=== PATIENT | male | born 1980 ===

== ENCOUNTER 2022-11-09 23:39 | Outpatient (REF) | payer BC, SELFPAY ==
[2022-11-09 19:06] LABS: HCT 43.2 % (40.0-50.0); MCH 31.6 pg (27.0-33.0); MCHC 34.7 % (32.0-36.0); MCV 91 fL (80-95); MPV 11.5 fL (8.0-11.0); Platelet Count 174 10^3/uL (130-400); RBC 4.75 10^6/uL (4.36-5.78); RDW 12.8 % (11.8-14.1); RDW-SD 42.8 fL; WBC 7.42 10^3/uL (4.4-10.8)
[2022-11-09 19:39] LABS: Hemoglobin A1C 5.3 % (<5.7)
[2022-11-09 19:55] LABS: ALT 132 U/L (16-63); AST 59 U/L (15-37); Albumin 4.1 g/dL (3.4-5.0); Alkaline Phosphatase 94 U/L (46-116); Anion Gap 7.5 mmol/L (3-11); BUN 14 mg/dL (7-18); Bilirubin, Total 0.9 mg/dL (0.2-1.0); CO2 28.5 mmol/L (21.0-32.0); CREATININE 1.3 mg/dL (0.70-1.30); Calcium 9.2 mg/dL (8.5-10.1); Chloride 99 mmol/L (98-107); Glucose 91 mg/dL (74-106); LDL CHOLESTEROL 103 mg/dL (<100); Potassium 3.8 mmol/L (3.5-5.1); Sodium 135 mmol/L (136-145); Total Protein 7.6 g/dL (6.4-8.2)
== END 2022-11-09 23:40 | disposition home or self-care (01) ==
LOC: NCHCN 23:39
PROVIDERS: PCP Physician Assistant Medical; Visit Provider Physician Assistant
DX: I10 Essential (primary) hypertension (principal); F41.8 Other specified anxiety disorders; E66.9 Obesity, unspecified; R79.89 Other specified abnormal findings of blood chemistry
CPT/HCPCS: 80053; 83721; 85027; 83036

== ENCOUNTER 2023-07-13 17:49 | Outpatient (REF) | payer BC, SELFPAY ==
[2023-07-13 19:51] LABS: Abs Immature Grans 0.02 10^3/uL (0.0-0.06); Absolute Basophil Count 0.06 10^3/uL (0.0-0.2); Absolute Eosinophil Count 0.23 10^3/uL (0.0-0.7); Absolute Lymphocyte Count 1.52 10^3/uL (1.2-3.4); Absolute Monocyte Count 0.54 10^3/uL (0.1-0.8); Absolute Neutrophil Count 4.97 10^3/uL (1.2-6.7); Basophils % 0.8 %; Eosinophils % 3.1 %; HCT 45.8 % (40.0-50.0); HGB 15.4 g/dL (13.5-17.5); Immature Grans % 0.3 %; Lymphocytes % 20.7 %; MCH 29.7 pg (27.0-33.0); MCHC 33.6 % (32.0-36.0); MCV 88 fL (80-95); MPV 11.9 fL (8.0-11.0); Monocytes % 7.4 %; Neutrophils % 67.7 %; Platelet Count 171 10^3/uL (130-400); RBC 5.18 10^6/uL (4.36-5.78); RDW-SD 39.1 fL; WBC 7.34 10^3/uL (4.4-10.8)
[2023-07-13 21:57] LABS: ALT 50 U/L (16-63); AST 31 U/L (15-37); Albumin 4.2 g/dL (3.4-5.0); Alkaline Phosphatase 80 U/L (46-116); Anion Gap 10.2 mmol/L (3-11); BUN 17 mg/dL (7-18); CO2 27.8 mmol/L (21.0-32.0); CREATININE 1.3 mg/dL (0.70-1.30); Calcium 9.6 mg/dL (8.5-10.1); Chloride 102 mmol/L (98-107); Estimated GFR 69.47 (mL/min/1.73m2); Glucose 98 mg/dL (74-106); Potassium 4.2 mmol/L (3.5-5.1); Sodium 140 mmol/L (136-145)
[2023-07-13 22:07] LABS: Bilirubin, Total 0.5 mg/dL (0.2-1.0)
== END 2023-07-13 17:50 | disposition home or self-care (01) ==
LOC: NCHCN 17:49
PROVIDERS: PCP Physician Assistant Medical; Visit Provider Physician Assistant
DX: K70.0 Alcoholic fatty liver (principal)
CPT/HCPCS: 80053; 85025